=== PATIENT | female | born 1975 | race Two or more races ===

== ENCOUNTER 2019-03-04 17:07 | Emergency (ER) | payer OTHER ==
[~2019-03-04] VITALS: Ht 160 cm; Wt 104.3 kg
[2019-03-04] MEDS ORDERED: GRALISE600 MG (18:14)
[2019-03-04] MEDS ORDERED: ENALAPRIL MALE2.5 MG (18:14)
[2019-03-04] MEDS ORDERED: GLIPIZIDE XL2.5 MG (18:15)
[2019-03-04] MEDS ORDERED: HUMULIN 70100 UNIT/1 (18:15)
[2019-03-05] MEDS ORDERED: KETO10TA2 PO ×2 (04:55)
[2019-03-05] MEDS ORDERED: BACTRIM 400-801 EACH PO (04:55)
== END 2019-03-05 05:30 | disposition home or self-care (01) ==
LOC: ER 17:07
DX: E11.622 Type 2 diabetes mellitus with other skin ulcer (principal); L98.498 Non-pressure chronic ulcer of skin of other sites with other specified severity